=== PATIENT | male | born 1990 | race Hispanic/Latino ===

== ENCOUNTER 2021-08-04 14:02 | Emergency (ER) | payer SELFPAY ==
[~2021-08-04] VITALS: Ht 170.2 cm; Wt 86.0 kg
[~2021-08-04 14:02] MED LIST: BENADRYL 50MG C50 MG PO
[2021-08-04 15:32] LABS: HEMATOCRIT 48.8 % (39.0-50.0); HEMOGLOBIN 16.2 g/dl (14.0-18.0); IMMATURE GRANULOCYTES 0.2 % (0.0-5.0); MEAN CELL VOLUME 87.5 fL CALC (80.0-100.0); MEAN CORPUSCULAR HGB CONC 33.2 g/dL CAL (32.0-36.0); NEUT# 2.2 thou/uL (1.82-7.42); RED BLOOD COUNT 5.58 mill/uL (4.70-6.10); RED CELL DISTRI WIDTH 12.5 % (11.5-15.5)
[2021-08-04 15:34] LABS: URINE BILIRUBIN - DIPSTICK NEGATIVE (NEGATIVE); URINE BLOOD DIPSTICK NEGATIVE (NEGATIVE); URINE COLOR YELLOW; URINE GLUCOSE - DIPSTICK NEGATIVE (NEGATIVE); URINE KETONE TRACE mg/dL (NEGATIVE); URINE LEUK ESTERASE NEGATIVE (NEGATIVE); URINE PROTEIN - DIPSTICK NEGATIVE (NEG-TRACE)
[2021-08-04 15:37] LABS: URINE NITRITE - DIPSTICK NEGATIVE (Negative)
[2021-08-04 16:12] LABS: ALBUMIN 4.6 g/dL (3.2-5.0); ALKALINE PHOSPHATASE 138 u/l (38-126); ANION GAP 15 (6-22 (CALC)); BILIRUBIN, TOTAL 1.2 mg/dL (0.0-1.4); BUN 5 mg/dL (9-20); BUN/CREATININE RATIO 11 (12-20 (CALC)); CARBON DIOXIDE 25 mmol/l (22-30); CHLORIDE 102 mmol/l (95-108); CREATININE 0.4 mg/dL (0.7-1.3); GFR > 60 ML/MIN (>=60 (CALC)); GFR FOR AFR.AMER. > 60 ML/MIN (>=60 (CALC)); SGOT/AST 124 u/l (17-59); SODIUM 138 mmol/l (137-146); TOTAL PROTEIN 8.7 g/dL (6.3-8.2)
[2021-08-04] MEDS ORDERED: TRAMADOL HCL50 MG PO (16:53)
[2021-08-04 17:00] VITALS: BP 143/84
== END 2021-08-04 17:00 | disposition home or self-care (01) | DRG 103 ==
LOC: ED 14:02
PROVIDERS: Nurse Practitioner
DX: R51.9 Headache, unspecified (principal)

== ENCOUNTER 2022-04-14 20:03 | Emergency (ER) | payer SELFPAY ==
[~2022-04-14] VITALS: Ht 170.2 cm; Wt 77.0 kg
[~2022-04-14 20:03] MED LIST changes: +TRAMADOL HCL50 MG PO
[2022-04-14 20:31] VITALS: BP 132/50
[2022-04-14 21:01] VITALS: BP 118/60
[2022-04-14 21:16] VITALS: BP 133/61
[2022-04-14] MEDS ORDERED: NAPROXEN500 MG PO (21:26)
[2022-04-14 21:31] VITALS: BP 139/62
[2022-04-14 22:01] VITALS: BP 161/83
[2022-04-14 22:16] VITALS: BP 156/59
== END 2022-04-14 22:25 | disposition home or self-care (01) | DRG 605 ==
LOC: ED 20:03
DX: S00.83XA Contusion of other part of head, initial encounter (principal); Y04.0XXA Assault by unarmed brawl or fight, initial encounter

== ENCOUNTER 2022-08-19 13:45 | Observation (INO) | payer SELFPAY ==
[~2022-08-19] VITALS: Ht 170.2 cm; Wt 79.0 kg
[2022-08-19] VITALS (12 sets, daily range): BP systolic 108–146; BP diastolic 69–99
[~2022-08-19 13:45] MED LIST changes: +NAPROXEN500 MG PO
--- NOTE | 2022-08-19 13:52 | NUR ---
pt states headache, and dizziness, with blurry vision that has been coming and going for approx 2 weeks.
--- NOTE | 2022-08-19 13:59 | NUR ---
pt states he drinks "to much" pt states he drinks at least 12 beers per day, stating the last one was around 8pm last night.
--- NOTE | 2022-08-19 14:21 | NUR ---
1416 pt diaphoretic, and shaking, states he has had seizures type activity previously when he stopped drinking alchohol.
[2022-08-19 14:31] LABS: BASO% 0.2 % (0-3); HEMATOCRIT 43.5 % (39.0-50.0); LYMPH% 31.8 % (15-41); MEAN CELL VOLUME 86.7 fL CALC (80.0-100.0); MEAN CORPUSCULAR HGB 28.3 pG CALC (26.0-32.0); MEAN CORPUSCULAR HGB CONC 32.6 g/dL CAL (32.0-36.0); MONO% 14.4 % (2-13); NEUT# 2.12 thou/uL (1.82-7.42); NEUT% 52.6 % (42-76); RED BLOOD COUNT 5.02 mill/uL (4.70-6.10); RED CELL DISTRI WIDTH 12.2 % (11.5-15.5)
[2022-08-19 15:06] LABS: ALBUMIN 4.3 g/dL (3.2-5.0); ALKALINE PHOSPHATASE 146 u/l (38-126); ANION GAP 14 (6-22 (CALC)); BUN 5 mg/dL (9-20); BUN/CREATININE RATIO 13 (12-20 (CALC)); CARBON DIOXIDE 29 mmol/l (22-30); CHLORIDE 101 mmol/l (95-108); CREATININE 0.4 mg/dL (0.7-1.3); GFR FOR AFR.AMER. > 60 ML/MIN (>=60 (CALC)); GFR OTHER RACES > 60 ML/MIN (>=60 (CALC)); POTASSIUM 3.9 mmol/l (3.5-5.1); SGOT/AST 81 u/l (17-59); SODIUM 140 mmol/l (137-146); TOTAL PROTEIN 7.9 g/dL (6.3-8.2)
[2022-08-19 15:23] LABS: HEMOGLOBIN 14.2 g/dl (14.0-18.0)
[2022-08-19 15:59] LABS: URINE BILIRUBIN - DIPSTICK NEGATIVE (NEGATIVE); URINE BLOOD DIPSTICK NEGATIVE (NEGATIVE); URINE COLOR YELLOW; URINE GLUCOSE - DIPSTICK NEGATIVE (NEGATIVE); URINE KETONE NEGATIVE (NEGATIVE); URINE LEUK ESTERASE NEGATIVE (NEGATIVE); URINE PROTEIN - DIPSTICK TRACE mg/dL (NEG-TRACE); URINE SPECIFIC GRAVITY 1.015
[2022-08-19 16:04] LABS: URINE NITRITE - DIPSTICK NEGATIVE (Negative)
--- NOTE | 2022-08-19 17:00 | NUR ---
REPORT WAS GIVEN TO ICU NURSE AT BEDSIDE ED ROOM 8.
--- NOTE | 2022-08-19 19:55 | NUR ---
TO FLOOR VIA W/C WITH NURSING ANALYSIS CONSULTANT/SONI LOYA
--- NOTE | 2022-08-19 20:15 | NUR ---
PATIENT ADMITTED TO ICU BED 4 VIA [facility] OVERFLOW. PATIENT ALERT, UPPER SORBIAN SPEAKING. PRESENT. ORIENTED PATIENT TO ROOM, CALL LIGHT AND SURROUNDINGS. ASSESSMENT COMPLETE. PATIENT APPEARS ANXIOUS HAVING TO STAY HERE BUT PLEASANT. TREMORS OBSERVED TO EXTREMITIES. DENIES ANY PAIN. NO DISTRESS NOTED. BED REMAINS IN LOW POSITION. CALL LIGHT IN REACH. FRESH WATER AT BEDSIDE.
--- NOTE | 2022-08-19 23:52 | NUR ---
PATIENT RESTING IN BED ON HIS LEFT SIDE. NO DISTRESS NOTED. NO SIGNS OF PAIN. BED REMAINS IN LOW POSITION. CALL LIGHT AND BELONGINGS REMAIN IN REACH.
[2022-08-20] VITALS (7 sets, daily range): BP systolic 128–165; BP diastolic 73–145
--- NOTE | 2022-08-20 01:45 | NUR ---
PATIENT OBSERVED LAYING ON HIS BACK ASLEEP. NO SIGNS OF DISTRESS. NOT SIGNS OF PAIN. NO TREMORS OBSERVED AT THIS TIME.
--- NOTE | 2022-08-20 04:00 | NUR ---
PATIENT RESTING IN BED WITH EYES CLOSED, ASLEEP. NO DISTRESS NOTED. NO PAIN OBSERVED. REMAINS AT BEDSIDE. BED REMAINS IN LOW POSITION. CALL SMITH IN REACH.
--- NOTE | 2022-08-20 07:20 | NUR ---
pt awake in bed; no apparent distress noted; pt s/o Terri present at bedside; s/o used for interpretation purposes at this time; pt alert and oriented; denies pain; no n/v noted; resp even and unlabored; lungs clear; skin color wnl; ra; hr reg; sr on monitor; strong pulses; no edema noted; abd soft with bs present; bm during the night reported; no urine to inspect at this time; BRP as been allowed per s/o; #20 flushed and patent to rac, ivf infusing without complication; no redness or edema noted at site; plan of care/ meds explained; pt states he has been drinking alcohol since age 9 per spouse; states in [place], no ID is required; tremors are noted to upper extremities; no hallucinations; call light within reach; will continue to monitor
--- NOTE | 2022-08-20 07:40 | NUR ---
Dr Lopez present at bedside to assess pt and discuss plan of care
--- NOTE | 2022-08-20 09:30 | NUR ---
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
--- NOTE | 2022-08-20 10:07 | NUR ---
awake sitting in chair; offers no complaints; tremors noted; sr on monitor; s/o present at bedside; will continue to monitor
--- NOTE | 2022-08-20 12:12 | NUR ---
awake in bed; no apparent distress noted; eating lunch; sr on monitor; iv intact and patent; minor tremors noted to bue; call light within reach; will continue to monitor
--- NOTE | 2022-08-20 14:10 | NUR ---
pt awake in bed; s/o present at bedside; iv intact; tremors noted to extremities; slight sweating noted to forehead; pt admits to feeling "good"; sr on monitor; medicated; will continue to monitor
--- NOTE | 2022-08-20 16:06 | NUR ---
awake in recliner; s/o at bedside; pt offers no complaints; no apparent distress noted; sr on monitor; iv intact and patent; call light within reach; will continue to monitor
--- NOTE | 2022-08-20 18:03 | NUR ---
awake in recliner; spouse at bedside; no apparent distress noted; no complaints/ concerns voices; iv intact and patent; sr on monitor; call light within reach;
[2022-08-21] VITALS: BP 133/63
[2022-08-21 02:02] VITALS: BP 139/65
[2022-08-21 04:00] VITALS: BP 146/83
[2022-08-21 05:25] LABS: HEMATOCRIT 42.5 % (39.0-50.0); HEMOGLOBIN 13.6 g/dl (14.0-18.0); MEAN CORPUSCULAR HGB 28.2 pG CALC (26.0-32.0); RED BLOOD COUNT 4.83 mill/uL (4.70-6.10); RED CELL DISTRI WIDTH 12.1 % (11.5-15.5)
[2022-08-21 05:49] LABS: ALBUMIN 3.5 g/dL (3.2-5.0); ALKALINE PHOSPHATASE 142 u/l (38-126); ANION GAP 10 (6-22 (CALC)); BILIRUBIN, TOTAL 0.7 mg/dL (0.2-1.3); BUN 3 mg/dL (9-20); BUN/CREATININE RATIO 10 (12-20 (CALC)); CARBON DIOXIDE 25 mmol/l (22-30); CHLORIDE 108 mmol/l (95-108); CREATININE 0.3 mg/dL (0.7-1.3); GFR FOR AFR.AMER. > 60 ML/MIN (>=60 (CALC)); GFR OTHER RACES > 60 ML/MIN (>=60 (CALC)); MAGNESIUM 1.6 mg/dL (1.6-2.3); POTASSIUM 3.9 mmol/l (3.5-5.1); SGOT/AST 75 u/l (17-59); SODIUM 139 mmol/l (137-146); TOTAL PROTEIN 6.6 g/dL (6.3-8.2)
[2022-08-21 06:00] VITALS: BP 134/49
--- NOTE | 2022-08-21 07:05 | NUR ---
pt resting in bed with eyes closed; no apparent distress noted; s/o present at bedside; easily aroused; assessment completed at this time; pt lao speaking, s/o Terri to interpret at this time; pt denies pain; no n/v noted; resp even and unlabored; skin color wnl; ra; hr reg; strong pulses; no edema noted; sr on monitor; abd soft with bs present; no bm noted per resume writer; pt admits to voiding, no urine to inspect at this time; refuses urinal; #20 to rac patent with ivf infusing without complication; no redness or edema noted at site; plan of care explained; tremors noted to bue, mostly left hand; no hallucination or other s/s of withdrawal at this time; call light within reach; will continue to monitor
--- NOTE | 2022-08-21 07:40 | NUR ---
dietary notified for guest tray
[2022-08-21 08:01] VITALS: BP 124/81
--- NOTE | 2022-08-21 08:27 | NUR ---
awake in bed; offers no complaints; iv intact; sr on monitor; dietary called again, request for guest tray; call light within reach; will continue to monitor
--- NOTE | 2022-08-21 09:01 | NUR ---
Dr Lopez present at bedside to assess pt and discuss plan of care
[2022-08-21] MEDS ORDERED: VITAMIN B-1100 M1 PO (09:05)
[2022-08-21] MEDS ORDERED: FOLIC ACID1 M1 PO (09:05)
[2022-08-21] MEDS ORDERED: CHLORDIAZEPOXID25 M1 PO (09:06)
--- NOTE | 2022-08-21 10:00 | NUR ---
awake in recliner; offers no complaints; spouse at bedside; iv intact and patent; mag infusing; sr on monitor; call light within reach; will continue to monitor
[2022-08-21 10:01] VITALS: BP 133/58
--- NOTE | 2022-08-21 11:45 | NUR ---
Discharge instructions given. Patient verbalizes understanding of same. Discharged in stable condition via Ambulatory to Home with significant other. All belongings sent with pt. DISCHARGE INSTRUCTIONS REVIEWED WITH Jatin PENNINGTON RN (INTERPRETOR);
== END 2022-08-21 11:58 | disposition home or self-care (01) | DRG 897 ==
LOC: ED 13:45 → ED-I 14:38 → ED 14:38 → ED-I 16:45 → ED 17:00 → ICU 17:01
PROVIDERS: Nurse Practitioner; ADMIT Internal Medicine; ATTEND Internal Medicine
DX: F10.131 Alcohol abuse with withdrawal delirium (principal); Y90.0 Blood alcohol level of less than 20 mg/100 ml
CPT/HCPCS: J1650; J2060; J3475

== ENCOUNTER 2022-12-29 19:49 | Emergency (ER) | payer SELFPAY ==
[~2022-12-29] VITALS: Ht 170.2 cm; Wt 11.0 kg
[~2022-12-29 19:49] MED LIST changes: +CHLORDIAZEPOXID25 M1 PO; +FOLIC ACID1 M1 PO; +VITAMIN B-1100 M1 PO
[2022-12-29 21:06] VITALS: BP 128/76
== END 2022-12-29 21:22 | disposition home or self-care (01) | DRG 153 ==
LOC: ED 19:49
DX: J03.90 Acute tonsillitis, unspecified (principal)
CPT/HCPCS: J0561

== ENCOUNTER 2023-01-01 07:51 | Emergency (ER) | payer SELFPAY ==
[~2023-01-01] VITALS: Ht 170.2 cm; Wt 73.8 kg
[2023-01-01] VITALS (10 sets, daily range): BP systolic 126–146; BP diastolic 54–80
[2023-01-01 09:07] LABS: BASO% 0.4 % (0-3); EOS% 0.4 % (0-8); HEMATOCRIT 40.8 % (39.0-50.0); HEMOGLOBIN 13.8 g/dl (14.0-18.0); IMMATURE GRANULOCYTES 0.1 % (0.0-5.0); LYMPH% 20.2 % (15-41); MEAN CELL VOLUME 86.1 fL CALC (80.0-100.0); MEAN CORPUSCULAR HGB 29.1 pG CALC (26.0-32.0); MEAN CORPUSCULAR HGB CONC 33.8 g/dL CAL (32.0-36.0); MONO% 15.1 % (2-13); NEUT# 4.78 thou/uL (1.82-7.42); NEUT% 63.8 % (42-76); RED BLOOD COUNT 4.74 mill/uL (4.70-6.10); RED CELL DISTRI WIDTH 12.6 % (11.5-15.5)
[2023-01-01 09:21] LABS: ALKALINE PHOSPHATASE 121 u/l (38-126); ANION GAP 14 (6-22 (CALC)); BUN 8 mg/dL (9-20); BUN/CREATININE RATIO 19 (12-20 (CALC)); C-REACTIVE PROTEIN 6.5 mg/dL (0-0.9); CARBON DIOXIDE 24 mmol/l (22-30); CHLORIDE 105 mmol/l (95-108); CREATININE 0.4 mg/dL (0.7-1.3); GFR FOR AFR.AMER. > 60 ML/MIN (>=60 (CALC)); GFR OTHER RACES > 60 ML/MIN (>=60 (CALC)); POTASSIUM 4.2 mmol/l (3.5-5.1); SGOT/AST 55 u/l (17-59); SODIUM 139 mmol/l (137-146)
[2023-01-01 09:25] LABS: BILIRUBIN, TOTAL 1.2 mg/dL (0.2-1.3); TOTAL PROTEIN 8.2 g/dL (6.3-8.2)
[2023-01-01] MEDS ORDERED: MEDROL DOSEPAK4 MG PO (11:16)
[2023-01-01] MEDS ORDERED: AMOX/K CLAV875 M1 PO (11:16)
== END 2023-01-01 12:40 | disposition home or self-care (01) | DRG 153 ==
LOC: ED 07:51
PROVIDERS: Family Medicine
DX: J36 Peritonsillar abscess (principal); Z20.822 Contact with and (suspected) exposure to COVID-19
CPT/HCPCS: Q9967

== ENCOUNTER 2023-12-20 16:16 | Emergency (ER) | payer SELFPAY ==
[2023-12-20] VITALS (18 sets, daily range): BP systolic 140–179; BP diastolic 76–114
[~2023-12-20] VITALS: Ht 170.2 cm; Wt 73.8 kg
[~2023-12-20 16:16] MED LIST changes: +AMOX/K CLAV875 M1 PO; +MEDROL DOSEPAK4 MG PO
[2023-12-20] MEDS ORDERED: MULTIPLE VITAMIN 10 ML,THIAMINE HCL 100 MG in SODIUM CHLORIDE 0.9% 1,000 ML IV ONE (16:30)
[2023-12-20 16:46] LABS: BASO% 0.3 % (0-3); EOS% 1.6 % (0-8); HEMATOCRIT 39.9 % (39.0-50.0); HEMOGLOBIN 13.4 g/dl (14.0-18.0); LYMPH% 41.7 % (15-41); MEAN CELL VOLUME 84.4 fL CALC (80.0-100.0); MEAN CORPUSCULAR HGB 28.3 pG CALC (26.0-32.0); MEAN CORPUSCULAR HGB CONC 33.6 g/dL CAL (32.0-36.0); MONO% 16.4 % (2-13); NEUT# 1.49 thou/uL (1.82-7.42); RED BLOOD COUNT 4.73 mill/uL (4.70-6.10); RED CELL DISTRI WIDTH 13.2 % (11.5-15.5)
[2023-12-20 17:00] LABS: ANION GAP 11 (6-22 (CALC)); CARBON DIOXIDE 23 mmol/l (22-30); CHLORIDE 113 mmol/l (95-108); CREATININE 0.3 mg/dL (0.7-1.3); ESTIMATED GFR 163 ML/MIN (>=90 (CALC)); POTASSIUM 3.6 mmol/l (3.5-5.1); SODIUM 143 mmol/l (137-146); TOTAL PROTEIN 7.9 g/dL (6.3-8.2)
[2023-12-20 17:09] LABS: ALKALINE PHOSPHATASE 243 u/l (38-126); BUN < 2 mg/dL (9-20); BUN/CREATININE RATIO 7 (12-20 (CALC)); SGOT/AST 160 u/l (17-59)
[2023-12-20] MEDS ORDERED: chlordiazePOXIDE HCL 25 MG CAP PO ONE (19:55)
== END 2023-12-20 21:06 | disposition home or self-care (01) | DRG 897 ==
LOC: ED 16:16
PROVIDERS: Family Medicine
DX: F10.129 Alcohol abuse with intoxication, unspecified (principal); Y90.6 Blood alcohol level of 120-199 mg/100 ml; R07.9 Chest pain, unspecified

== ENCOUNTER 2024-05-06 20:20 | Observation (INO) | payer SELFPAY ==
[~2024-05-06] VITALS: Ht 170.2 cm; Wt 76.4 kg
--- NOTE | 2024-05-06 20:20 | NUR ---
PT TO RM #10 VIA EMS, THADDEUS PARSON MD AT BEDSIDE.
[2024-05-06 20:30] VITALS: BP 129/76
[2024-05-06] MEDS ORDERED: SODIUM CHLORIDE 0.9% 1,000 ML IV ONE (20:30)
[2024-05-06 20:46] LABS: BASO% 0.8 % (0-3); HEMATOCRIT 45.4 % (39.0-50.0); HEMOGLOBIN 14.4 g/dl (14.0-18.0); LYMPH% 61.2 % (15-41); MEAN CORPUSCULAR HGB 28.4 pG CALC (26.0-32.0); MEAN CORPUSCULAR HGB CONC 31.7 g/dL CAL (32.0-36.0); MONO% 12.8 % (2-13); NEUT# 0.88 thou/uL (1.82-7.42); NEUT% 22.2 % (42-76); RED BLOOD COUNT 5.07 mill/uL (4.70-6.10); RED CELL DISTRI WIDTH 12.9 % (11.5-15.5)
[2024-05-06 20:48] LABS: MEAN CELL VOLUME 89.5 fL CALC (80.0-100.0)
[2024-05-06 21:00] VITALS: BP 136/71
[2024-05-06 21:06] LABS: ALBUMIN 4.2 g/dL (3.2-5.0); ALKALINE PHOSPHATASE 329 u/l (38-126); BILIRUBIN, TOTAL 0.7 mg/dL (0.2-1.3); BUN 3 mg/dL (9-20); BUN/CREATININE RATIO 7 (12-20 (CALC)); CARBON DIOXIDE 25 mmol/l (22-30); CHLORIDE 108 mmol/l (95-108); CPK 41 u/l (55-170); CREATININE 0.4 mg/dL (0.7-1.3); ESTIMATED GFR 149 ML/MIN (>=90 (CALC)); SGOT/AST 104 u/l (17-59); SODIUM 148 mmol/l (137-146)
[2024-05-06 21:14] LABS: ANION GAP 20 (6-22 (CALC)); POTASSIUM 4.6 mmol/l (3.5-5.1)
[2024-05-06 21:16] LABS: ETHYL ALCOHOL 319 mg/dl (0-30)
[2024-05-06 21:30] VITALS: BP 125/56
[2024-05-06] MEDS ORDERED: Iopamidol 370 (Isovue) 76% 100 ML SDV IV ONE (21:30)
--- NOTE | 2024-05-06 21:45 | NUR ---
PT RESTING WITH FAMILY AT THE BEDSIDE.
[2024-05-06 22:00] VITALS: BP 119/59
--- NOTE | 2024-05-06 23:14 | NUR ---
PT AMBULATED TO . NO OTHER NEEDS AT THIS TIME.
[2024-05-07] MEDS ORDERED: SODIUM CHLORIDE 0.9% 1,000 ML IV PRN ×2 (00:10→00:50)
[2024-05-07] MEDS ORDERED: MAGNESIUM HYDROXIDE 30 ML UDC PO PRN (00:10)
[2024-05-07] MEDS ORDERED: ACETAMINOPHEN 325 MG/TAB PO PRN (00:10)
[2024-05-07] MEDS ORDERED: METHIMAZOLE 5 MG/TAB PO SCH ×3 (00:11→09:00)
[2024-05-07] MEDS ORDERED: METHIMAZOLE 5 MG/TAB PO ONE (00:15)
--- NOTE | 2024-05-07 00:36 | NUR ---
PT UPDATED ON STATUS.
[2024-05-07] MEDS ORDERED: LORazepam 2 MG/ML IV PRN (00:50)
[2024-05-07] MEDS ORDERED: chlordiazePOXIDE HCL 25 MG CAP PO PRN (00:50)
[2024-05-07] MEDS ORDERED: cloNIDine HCL 0.1 MG/TAB PO PRN (00:50)
--- NOTE | 2024-05-07 01:03 | NUR ---
PT ARRIVED TO [facility] VIA WHEELCHAIR WITH A FAMILY MEMBER. NO DISTRESS NOTED PT WITHDRAWN. SEIZURE PRECAUTIONS IN PLACE. INSTRUCTION GIVEN TO PT ON HOW TO USE CALL LIGHT. PT STATED UNDERSTANDING.
[2024-05-07 01:06] VITALS: BP 139/69
--- NOTE | 2024-05-07 01:11 | NUR ---
PT TRANSPORTED VIA WC TO ROOM 261. VSS. TRANSFERRED CARE OF PT.
[2024-05-07 01:15] LABS: MAGNESIUM 1.9 mg/dL (1.6-2.3)
--- NOTE | 2024-05-07 01:30 | NUR ---
ASSESSMENT DONE. PT REPORTS NO PAIN, SOB OR CP AT THIS TIME. IV FLUSHES AND NS @ 100ML/HR STARTED. SKIN INTACT NO EDEMA NOTED. BOWEL SOUNDS ACTIVE LAST BM 05/06/24. NO ISSUES URINATING. PT ABLE TO DRINK ORAL FLUIDS WITHOUT DIFFICULTY. CALL LIGHT WITHIN REACH. PLAN OF CARE REVEIWED WITH PT AND FAMILY MEMBER.
[2024-05-07 03:38] VITALS: BP 131/73
[2024-05-07 06:56] VITALS: BP 145/80
--- NOTE | 2024-05-07 07:27 | NUR ---
SHIFT CHANGE REPORT, PT AWAKE ALERT AND ORIENTED RESTING IN BED, HAS A WILD APPEARANCE AND DOES NOT KEEP A STEADY GAZE BUT LOOKS AWAY FROM STAFF AND SEEM TO WANT VISITOR IN ROOM TO RESPOND TO QUESTIONS, REQUESTING SOMETHING TO DRING AT THIS TIME, IVF INFUSING, TELE MONITOR IN PLACE, CALL SMITH IN REACH AND BED LOCKED IN LOWEST POSITION.
[2024-05-07] MEDS ORDERED: METOPROLOL SUCCINATE 50 MG/TAB PO SCH (09:00)
--- NOTE | 2024-05-07 13:21 | NUR ---
VISIBLE TREMORS IN ALL EXTREMETIES, MEDICATED PER PROTOCOL.
--- NOTE | 2024-05-07 15:41 | NUR ---
TRANSPORTED OFF UNIT AT THIS TIME VIA W/C TO [facility]
--- NOTE | 2024-05-07 17:00 | NUR ---
BACK TO UNIT SETTLED IN ROOM, SHOWERED, FEELING BETTER
[2024-05-07 18:05] VITALS: BP 141/64
[2024-05-07 19:05] VITALS: BP 141/64
--- NOTE | 2024-05-07 20:45 | NUR ---
PT RESTING IN BED FAMILY AT BEDSIDE NO DISTRESS NOTED. CIWA SCORE 4. NO PAIN REPORTED. VS WNL ON RA LUNGS CLEAR. SKIN INTACT. IV FLUIDS ONGOING WORKING PROPERLY. CALL LIGHT WITHIN REACH. PLAN OF CARE ONGOING.
[2024-05-07] MEDS ORDERED: ENOXAPARIN SODIUM 40 MG/0.4 ML SYR SC SCH (21:00)
[2024-05-07] MEDS ORDERED: Zaleplon 5 MG/CAP PO PRN (21:05)
[2024-05-08 00:05] VITALS: BP 140/79
[2024-05-08 00:14] VITALS: BP 140/79
--- NOTE | 2024-05-08 00:30 | NUR ---
PT SITTING UP IN CHAIR NO DISTRESS NOTED. CIWA SCORE OF 4. CALL LIGHT WITHIN REACH. PLAN OF CARE ONGOING.
--- NOTE | 2024-05-08 04:00 | NUR ---
PT RESTING NO DISTRESS NOTED ON EXAM. IV FLUIDS ONGOING. CALL LIGHT WITHIN REACH. PLAN OF CARE ONGOING.
[2024-05-08 05:13] LABS: CREATININE 0.3 mg/dL (0.7-1.3); MAGNESIUM 1.7 mg/dL (1.6-2.3); POTASSIUM 4.4 mmol/l (3.5-5.1)
--- NOTE | 2024-05-08 07:05 | NUR ---
PT SITTING UP IN THE BED TALKING TO VISITOR AT BEDSIDE, PT IS A&O X3, PUPILS PERRL, RESP. EVEN AND UNLABORED, LUNG SOUNDS CLEAR, NORMAL S1 S2 HEART SOUNDS, TELE MONITOR IN PLACE, STRONG RADIAL AND PEDAL PULSES, 18G RAC IV WITH FLUIDS INFUSING AT PRESCRIBED RATE, SAFETY MEASURES REINFORCED, CALL SMITH WITHIN REACH
[2024-05-08 07:34] VITALS: BP 139/85
[2024-05-08 07:46] VITALS: BP 139/85
[2024-05-08] MEDS ORDERED: MULTIPLE VITAMIN TABLET PO SCH (09:00)
[2024-05-08] MEDS ORDERED: THIAMINE HCL 100 MG TAB PO SCH (09:00)
[2024-05-08] MEDS ORDERED: FOLIC ACID 1 MG/TAB PO SCH (09:00)
[2024-05-08 10:53] VITALS: BP 135/81
[2024-05-08 11:26] VITALS: BP 135/81
--- NOTE | 2024-05-08 12:00 | NUR ---
PT SITTING ON THE SIDE OF THE BED TALKING TO VISITORS AND EATING LUNCH, PT DENIES ANY NEEDS AT THIS TIME, CALL SMITH WITHIN REACH
[2024-05-08] MEDS ORDERED: METHIMAZOLE5 MG PO (13:18)
[2024-05-08] MEDS ORDERED: TOPROL XL50 MG PO (13:18)
--- NOTE | 2024-05-08 15:10 | NUR ---
Discharge instructions given. Patient verbalizes understanding of same. Discharged in stable condition via Wheelchair to Home with spouse. All belongings sent with pt.
== END 2024-05-08 15:16 | disposition home or self-care (01) | DRG 645 ==
LOC: ED 20:20 → ED-I 23:50 → ED 05-07 00:24 → MS2 05-07 00:25
PROVIDERS: Family Medicine; ADMIT Internal Medicine; ATTEND Internal Medicine
DX: E05.90 Thyrotoxicosis, unspecified without thyrotoxic crisis or storm (principal); F10.129 Alcohol abuse with intoxication, unspecified; Y90.8 Blood alcohol level of 240 mg/100 ml or more
CPT/HCPCS: G0378; J1650; J2060; Q9967

== ENCOUNTER 2024-07-17 08:19 | Emergency (ER) | payer SELFPAY ==
[2024-07-17] VITALS (24 sets, daily range): BP systolic 125–171; BP diastolic 60–104
[~2024-07-17] VITALS: Ht 170.2 cm; Wt 77.1 kg
[~2024-07-17 08:19] MED LIST changes: +METHIMAZOLE5 MG PO; +TOPROL XL50 MG PO
[2024-07-17] MEDS ORDERED: ASPIRIN 81 MG/TAB PO ONE (08:30)
[2024-07-17 08:49] LABS: BASO% 0.5 % (0-3); EOS% 2.8 % (0-8); HEMATOCRIT 42.6 % (39.0-50.0); HEMOGLOBIN 13.8 g/dl (14.0-18.0); MEAN CELL VOLUME 88.4 fL CALC (80.0-100.0); MEAN CORPUSCULAR HGB 28.6 pG CALC (26.0-32.0); MEAN CORPUSCULAR HGB CONC 32.4 g/dL CAL (32.0-36.0); NEUT# 1.46 thou/uL (1.82-7.42); NEUT% 33.7 % (42-76); RED BLOOD COUNT 4.82 mill/uL (4.70-6.10); RED CELL DISTRI WIDTH 13.2 % (11.5-15.5)
[2024-07-17 09:01] LABS: ALBUMIN 4.1 g/dL (3.2-5.0); ALKALINE PHOSPHATASE 319 u/l (38-126); ANION GAP 12 (6-22 (CALC)); BUN 7 mg/dL (9-20); BUN/CREATININE RATIO 19 (12-20 (CALC)); CARBON DIOXIDE 27 mmol/l (22-30); CHLORIDE 104 mmol/l (95-108); CREATININE 0.4 mg/dL (0.7-1.3); ESTIMATED GFR 149 ML/MIN (>=90 (CALC)); POTASSIUM 3.7 mmol/l (3.5-5.1); SGOT/AST 139 u/l (17-59); SODIUM 139 mmol/l (137-146)
[2024-07-17 09:03] LABS: BILIRUBIN, TOTAL 1.6 mg/dL (0.2-1.3)
[2024-07-17] MEDS ORDERED: ONDANSETRON HCl 4 MG/2 ML SDV IV ONE (09:30)
[2024-07-17] MEDS ORDERED: MORPHINE SULFATE 4 MG/ML VIAL IV ONE (09:30)
[2024-07-17] MEDS ORDERED: EC-NAPROXEN500 MG PO (13:35)
== END 2024-07-17 14:04 | disposition home or self-care (01) | DRG 313 ==
LOC: ED 08:19
PROVIDERS: Family Medicine
DX: R07.9 Chest pain, unspecified (principal); F10.10 Alcohol abuse, uncomplicated
CPT/HCPCS: J2405; Q9967